=== PATIENT | male | born 1965 | race American Indian/Alaskan Native ===

== ENCOUNTER 2017-10-23 14:45 | Emergency (ER) | payer OTHER ==
[2017-10-23] MEDS ORDERED: NACL 0.9% 500 ML IR ONE (15:03)
[2017-10-23] MEDS ORDERED: CATAPRES PO ONE ×2 (15:07→17:34)
[2017-10-23] MEDS ORDERED: BOOSTRIX IM ONE (15:07)
[2017-10-23] MEDS ORDERED: XYLOCAINE 1% 20 mL ONE (15:25)
--- NOTE | 2017-10-23 15:27 | XRay Report ---
LEFT FINGERS, 3 VIEWS History: Index finger laceration. Findings: A complex soft-tissue injury to the distal index finger is identified with applied bandage. An associated tuft fracture is identified with mild displacement. The remainder of the left fingers are intact. No joint pathology is appreciated. Impression: Complex soft-tissue injury to the distal index finger. Tuft fracture.
--- NOTE | 2017-10-23 16:11 | Emergency Department Report ---
ED Upper Extremity Inj HPI - General Chief Complaint: Extremity Injury, Upper Stated Complaint: FINGER INJURY Time Seen by Provider: 10/23/17 15:07 Source: patient Mode of arrival: Ambulatory Limitations: No Limitations - History of Present Illness Initial Comments: 52-year-old right hand dominant male with a past medical history of hypertension presents to the hospital with left index finger laceration. Patient was cutting ribs when a sharp rib edge caused a laceration with partial amputation of his distal left index finger including the nail bed. Patient has 3/10 pain. He presents with elevated blood pressure and has been noncompliant with blood pressure medications for several days. [facility] but he has yet to initiate medication. Denies headache, chest pain, or shortness of breath. Tetanus status unknown. - Related Data Previous Rx's Medication Instructions Recorded Last Taken Type Cephalexin [Keflex] 500 mg PO Q8HR 7 Days cap 10/23/17 Unknown Rx HYDROcodone/ACETAMINOPHEN [[place] 1 each PO Q4-6H PRN #20 tablet 10/23/17 Unknown Rx 5-325 Tablet] Ibuprofen [Motrin] 800 mg PO Q8HR PRN #30 tablet 10/23/17 Unknown Rx Allergies Allergy/AdvReac Type Severity Reaction Status Date / Time No Known Allergies Allergy Unverified 10/23/17 15:00 ED Review of Systems ROS: Stated complaint: FINGER INJURY Other details as noted in HPI Comment: All other systems reviewed and negative ED Past Medical Hx - Past Medical History Previous Medical History?: Yes Hx Hypertension: Yes - Surgical History Past Surgical History?: No - Social History Smoking Status: Current Every Day Smoker Substance Use Type: Alcohol, Marijuana - Medications Home Medications: Home Medications Medication Instructions Recorded Confirmed Last Taken Type Cephalexin [Keflex] 500 mg PO Q8HR 7 Days cap 10/23/17 Unknown Rx HYDROcodone/ACETAMINOPHEN [[place] 1 each PO Q4-6H PRN #20 tablet 10/23/17 Unknown Rx 5-325 Tablet] Ibuprofen [Motrin] 800 mg PO Q8HR PRN #30 tablet 10/23/17 Unknown Rx ED Physical Exam - General Limitations: No Limitations - Other Other exam information: General: No limitations, patient is alert in no acute distress Head exam: Atraumatic, normocephalic Eyes exam: Normal appearance, pupils equal reactive to light, extraocular movements intact ENT: Moist mucous membrane, normal oropharynx Neck exam: Normal inspection, full range of motion, no meningismus nontender Respiratory exam: Clear to auscultation bilateral, no wheezes, rales, crackles Cardiovascular: Normal rate and rhythm, normal heart sounds Abdomen: Soft, nondistended, and nontender, with normal bowel sounds, no rebound, or guarding Extremity: laceration at distal left index finger that is vertical and extending thru the nail bed and down to below the nail bed. Large clot in place. sensation intact, FROM finger. Back: Normal Inspection, full range of motion, no tenderness Neurologic: Alert, oriented x3, cranial nerves intact, no motor or sensory deficit Psychiatric: normal affect, normal mood Skin: Warm, dry, intact ED Course Vital Signs 10/23/17 10/23/17 10/23/17 14:56 15:45 17:32 Temperature 98.2 F Pulse Rate 89 91 H 78 Respiratory 20 16 Rate Blood Pressure 181/124 194/126 Blood Pressure 176/120 [Left] O2 Sat by Pulse 99 Oximetry 10/23/17 17:37 Temperature Pulse Rate 78 Respiratory Rate Blood Pressure 176/120 Blood Pressure [Left] O2 Sat by Pulse Oximetry - Consultations Consultation #1: 10/23/17 18:29 case d/w Dr Fajardo, f/u in office appropriate - Laceration /Wound Repair Left Dorsal Finger Wound Location: upper extremity (left index finger laceration) Wound Length (cm): 3 Wound's Depth, Shape: linear Wound Explored: clean Irrigated w/ Saline (ccs): 1,000 Betadine Prep?: Yes Volume Anesthetic (ccs): 5 Wound Repaired With: sutures, Dermabond Number of Sutures: 10 Layer Closure?: No Sterile Dressing Applied?: Yes Progress: WOund repaired By Saroj Kyle and Myself. Blank Doc - Documentation Documentation: - Laceration /Wound Repair Left Distal Finger Wound Location: upper extremity (left distal index finger) Wound Length (cm): 3 Wound's Depth, Shape: irregular, flap Irrigated w/ Saline (ccs): 1,000 Betadine Prep?: Yes Anesthesia: 1% Lidocaine Volume Anesthetic (ccs): 8 Wound Debrided: minimal Wound Repaired With: sutures Number of Sutures: 10 Sterile Dressing Applied?: Yes Progress: Digital block performed. Good local anesthesia achieved. Wound irrigated thoroughly with saline and iodine mixture. Large flap with debridement of nailbed and distal finger noted. It is a large V-shaped laceration approximately 3-4 cm in length. Approximately 10 sutures placed, both nylon and Prolene sutures used approximately six 4-0 proline and four 5-0 nylon sutures placed. Moderate closure achieved using sutures. Bleeding controlled via sutures. One set of sutures placed through nailbed exiting through lateral aspect of distal index fingernail. There appears to be damage to the nail bed upon exam. Procedure tolerated well. Covered with nonadhesive dressing afterward. Small amount of skin adhesive placed overlying distal nailbed edge. Patient given finger splint afterward. Dr. Vogel inspected wound before final closure. ED Medical Decision Making - Lab Data Result diagrams: 10/23/17 17:07 Lab Results 10/23/17 10/23/17 10/23/17 Range/Units 17:01 17:01 17:07 Sodium 139 (137-145) mmol/L Potassium 4.3 (3.6-5.0) mmol/L Chloride 99.8 (98-107) mmol/L Carbon Dioxide 26 (22-30) mmol/L Anion Gap 18 mmol/L BUN 20 (9-20) mg/dL Creatinine 1.0 (0.8-1.5) mg/dL Estimated GFR > 60 ml/min BUN/Creatinine Ratio 20 % Glucose 91 (75-100) mg/dL Calcium 9.6 (8.4-10.2) mg/dL Hepatitis A IgM Ab Non-reactive (NonReactive) Hep Bs Antigen Non-reactive (Negative) Hep B Core IgM Ab Non-reactive (NonReactive) Hepatitis C Antibody Non-reactive (NonReactive) HIV 1&2 Antibody Rapid Non react (Non React) HIV P24 Antigen Non react (Non React) - Radiology Data Radiology results: report reviewed LEFT FINGERS, 3 VIEWS History: Index finger laceration. Findings: A complex soft-tissue injury to the distal index finger is identified with applied bandage. An associated tuft fracture is identified with mild displacement. The remainder of the left fingers are intact. No joint pathology is appreciated. Impression: Complex soft-tissue injury to the distal index finger. Tuft fracture. - Medical Decision Making laceration was complex and repaired with suture and dermabond glue with good approximation and hemostasis IM tetanus, Po clonidine and Po [place], and Keflex Patient did receive a tetanus shot. BP trending downward. Patient is not went to stay for further reduction and remains asymptomatic pt with asymptomatic hypertension, bmp normal Pt instructed to monitor BP home with his blood pressure cuff and start his medication as prescribed. Outpatient follow-up with orthopedics to be provided HIV and hepatitis panel screening performed after needle stick injury - Differential Diagnosis Laceration, fracture, htn emergency Critical Care Time: No Critical care attestation.: If time is entered above; I have spent that time in minutes in the direct care of this critically ill patient, excluding procedure time. ED Disposition Clinical Impression: Uncontrolled hypertension, Noncompliance with medication regimen Finger laceration Qualifiers: Encounter type: initial encounter Finger: index finger Damage to nail status: with damage Foreign body presence: without foreign body Laterality: left Qualified Code(s): S61.311A - Laceration without foreign body of left index finger with damage to nail, initial encounter Finger fracture, left Qualifiers: Encounter type: initial encounter Finger: index finger Fracture type: closed Phalanx: distal Fracture alignment: nondisplaced Qualified Code(s): S62.661A - Nondisplaced fracture of distal phalanx of left index finger, initial encounter for closed fracture Disposition: TO HOME OR SELFCARE Is pt being admited?: No Does the pt Need Aspirin: No Condition: Stable Instructions: Hypertension (ED), Finger Laceration (ED) Additional Instructions: Take the medication as prescribed. Follow-up with the orthopedic doctor provided. Monitor your blood pressure and reinitiate your blood pressure medication as discussed. Please monitor for signs of infection and return if symptoms worsen. Your sutures should be removed in 7-10 days. Prescriptions: Cephalexin [Keflex] 500 mg PO Q8HR 7 Days cap HYDROcodone/ACETAMINOPHEN [[place] 5-325 Tablet] 1 each PO Q4-6H PRN #20 tablet PRN Reason: Pain , Severe (7-10) Ibuprofen [Motrin] 800 mg PO Q8HR PRN #30 tablet PRN Reason: Pain, Moderate (4-6) Referrals: PRIMARY CAREMD [Primary Care Provider] - 3-5 Days AIYANA FAJARDO MD [Staff Physician] - 7-10 days Time of Disposition: 18:31
[2017-10-23] MEDS ORDERED: KEFLEX PO ONE (17:17)
[2017-10-23] MEDS ORDERED: NORCO 5/325 ONE (17:24)
[2017-10-23] MEDS ORDERED: ANCEF/NS 1 GM/50 ML 1 GM/50 ML BAG IV ONE (17:30)
[2017-10-23] MEDS ORDERED: NORCO 5/325 PO ONE (17:31)
[2017-10-23 17:37] LABS: BUN/Creatinine Ratio 20; Blood Urea Nitrogen 20 mg/dL (9-20); Calcium 9.6 mg/dL (8.4-10.2); Hemolysis Index 19
--- NOTE | 2017-10-23 17:41 | Emergency Department Report ---
Blank Doc - Documentation Documentation: - Laceration /Wound Repair Left Distal Finger Wound Location: upper extremity (left distal index finger) Wound Length (cm): 3 Wound's Depth, Shape: irregular, flap Irrigated w/ Saline (ccs): 1,000 Betadine Prep?: Yes Anesthesia: 1% Lidocaine Volume Anesthetic (ccs): 8 Wound Debrided: minimal Wound Repaired With: sutures Number of Sutures: 10 Sterile Dressing Applied?: Yes Progress: Digital block performed. Good local anesthesia achieved. Wound irrigated thoroughly with saline and iodine mixture. Large flap with debridement of nailbed and distal finger noted. It is a large V-shaped laceration approximately 3-4 cm in length. Approximately 10 sutures placed, both nylon and Prolene sutures used approximately six 4-0 proline and four 5-0 nylon sutures placed. Moderate closure achieved using sutures. Bleeding controlled via sutures. One set of sutures placed through nailbed exiting through lateral aspect of distal index fingernail. There appears to be damage to the nail bed upon exam. Procedure tolerated well. Covered with nonadhesive dressing afterward. Small amount of skin adhesive placed overlying distal nailbed edge. Patient given finger splint afterward. Dr. Vogel inspected wound before final closure.
[2017-10-23 17:58] LABS: Hepatitis A Antibody IgM Non-Reactive (NonReactive); Hepatitis B Core IgM Non-Reactive (NonReactive); Hepatitis B Surface Antigen Non-Reactive (Negative); Hepatitis C Virus Antibody Non-Reactive (NonReactive)
[2017-10-23 19:22] VITALS: BP 147/103
== END 2017-10-23 19:23 | disposition home or self-care (01) ==
LOC: ED 14:45
DX: S62.661A Nondisplaced fracture of distal phalanx of left index finger, initial encounter for closed fracture (principal); S61.311A Laceration without foreign body of left index finger with damage to nail, initial encounter; I10 Essential (primary) hypertension; W22.8XXA Striking against or struck by other objects, initial encounter; Y93.89 Activity, other specified; Y92.89 Other specified places as the place of occurrence of the external cause; Y99.8 Other external cause status; F17.200 Nicotine dependence, unspecified, uncomplicated; F12.10 Cannabis abuse, uncomplicated
CPT/HCPCS: 36415; 80048; 80074; 87806; 90471; 90715; 99284; J0690